=== PATIENT | female | born 1975 | race Caucasian/White ===

== ENCOUNTER 2024-06-19 23:52 | Emergency (ER) | payer SELFPAY ==
[2024-06-19 23:58] VITALS: BP 165/113; PULSE 81; RESP 18; TEMP 36.7; O2SAT 100; BMI 37.2
[2024-06-20] VITALS (9 sets, daily range): BP systolic 89–165; BP diastolic 58–113; PULSE 63–79; O2SAT 92–100
[2024-06-20] MEDS: ketorolac 30 mg/mL INJ IVP (00:28)
[2024-06-20 00:34] LABS: Basophils # 0.1 10^3/uL (0.0-0.1); Basophils % 0.7 %; Eosinophils # 0.5 10^3/uL (0.0-0.8); Eosinophils % 3.1 %; Hematocrit 43.5 % (36-47); Lymphocytes # 4.6 10^3/uL (0.8-4.8); Mean Corpuscular HGB Conc 31.5 g/dL (30-55); Mean Corpuscular Hemoglobin 28.7 pg (27-33); Mean Corpuscular Volume 91.2 fl (85-98); Mean Platelet Volume 9.2 fL (7.4-10.4); Monocytes % 6.6 %; Neutrophils # 9.09 10^3/uL (1.8-7.7); Nucleated Red Blood Cells % 0 %; Platelet Count 448 10^3/cmm (157-399); Red Blood Count 4.77 10^6/uL (3.85-5.65); Red Cell Distribution Width 12.6 % (12.1-15.1); White Blood Count 15.39 10^3/uL (3.29-11.43)
[2024-06-20 00:48] LABS: Alanine Aminotransferase 12 U/L (0-33); Albumin Level 3.9 g/dL (3.5-5.2); Alkaline Phosphatase 92 U/L (35-105); Anion Gap 12.7 (5-19); Aspartate Amino Transferase 15 U/L (0-32); Blood Urea Nitrogen 17 mg/dL (6-20); Carbon Dioxide 29 mmol/L (22-29); Chloride 100 mmol/L (98-107); Creatinine Clr Calc Pharmacy 75.5299; Globulin 2.9 g/dL (1.3-4.6); Glomerular Filtration Rate 59.2 mL/min (90-130); Glucose 124 mg/dL (65-115); Lipase 46 U/L (13-60); Osmolality Calculated 289 mOsm/kg (285-295); Potassium 3.7 mmol/L (3.5-5.1); Sodium 138 mmol/L (136-145); Total Bilirubin 0.2 mg/dL (0.15-1.2); Total Protein 6.8 g/dL (6.6-8.7)
[2024-06-20 00:50] LABS: Bilirubin Urine Negative (Negative); Blood Urine Negative (Negative); Glucose Urine UA Negative (Normal); Ketones Urine Negative (Negative); Leukocyte Esterase Urine Negative (Negative); Nitrate Urine Negative (Negative); Protein Urine Negative (Negative); Specific Gravity, Urine 1.029 (1.005-1.030); Urine Appearance Clear (CLEAR); Urine Color Yellow (Yellow)
[2024-06-20 00:55] LABS: Add Urine Microscopic? YES; Bacteria Urine Trace /hpf; Squamous Epithelial Cell Urine 0-5 /hpf (0-5); WBC Urine 0-5 /hpf (0-5)
--- NOTE | 2024-06-20 01:06 | W.ED.ABDPA2 ---
HPI - Abdominal Pain General: Chief Complaint: Abdominal Pain Stated Complaint: n/v abd pain Time Seen by Provider: 06/20/24 00:20 History of Present Illness: Patient presents to the ER with complaints of epigastric and right upper quadrant abdominal pain. She said began 2 hours ago. Is sharp stabbing in nature. Says she does have a history of gallbladder issues and possible pancreatitis. Patient's squirming around on bed acting like she is tripping out on methamphetamines and cannot sit still. Related Data Date of Last Menstrual Period: 06/12/24 Allergies Allergy/AdvReac Type Severity Reaction Status Date / Time No Known Allergies Allergy Verified 06/20/24 00:05 Review of Systems General: Reports: 10 or more systems reviewed and unremarkable except in HPI and below [facility] Female Reproductive History: Date of last menstrual period: 06/12/24 Physical Exam Const: COMMON NORMALS: no acute distress, average body habitus, patient oriented x3, no limitations, healthy appearing, alert and well nourished HENMT: COMMON NORMALS: normocephalic, hearing grossly normal bilaterally, external ears normal, Normal external nose present and moist oral mucous membranes HEAD & SCALP: normocephalic NOSE: Normal external nose present EXTERNAL EAR: Yes external ears normal Neck/C-Spine: COMMON NORMALS: no JVD Chest: COMMONS NORMALS: normal inspection of the chest and normal palpation of entire chest wall Resp: COMMON NORMALS: normal respiratory effort, No retractions, No use of accessory muscles and clear to auscultation bilaterally AUSCULTATION: clear to auscultation bilaterally Cardio: COMMON NORMALS: no JVD, regular rate, regular rhythm, S1 normal heart sound present, S2 normal heart sound present, No gallops present (Cardio), No clicks present (Cardio), No murmurs present (Cardio) and No rub (Cardio) RATE: regular rate RHYTHM: regular rhythm HEART SOUNDS: S1 normal heart sound present and S2 normal heart sound present GI: COMMON NORMALS: Normal to inspection, nondistended, normoactive bowel sounds present, Soft to palpation, No hepatosplenomegaly present and no masses; negative for non-tender (Tender to palpate epigastric right upper quadrant area) PALPATION: Yes Soft to palpation and Yes No hepatosplenomegaly present Neuro: COMMON NORMALS: patient oriented x3 SENSORIUM/ORIENTATION: Yes alert Course Vital Signs: Vital signs: Vital Signs Temperature 98.0 F 06/19/24 23:58 Pulse Rate 63 06/20/24 04:15 Respiratory Rate 18 06/19/24 23:58 Blood Pressure 107/73 06/20/24 04:15 Pulse Oximetry 97 06/20/24 04:15 Oxygen Delivery Me thod Room Air 06/20/24 02:10 MDM - Abdominal Pain Medical Decision Making Lab work was obtained which showed a white count of 15.39 platelets of 448, otherwise essentially unremarkable except for positive for marijuana, CT scan of the abdomen pelvis showed mild infiltration of the liver along with cholelithiasis. ALT AST and alk phos all normal. These results was discussed with the patient. Patient be discharged home to follow-up with her PCP. Medical Records I reviewed the patient's medical records. Lab Data I reviewed the patient's lab results. 06/20/24 00:21 06/20/24 00:21 Labs/Radiology: Radiology Impressions Abdomen/Pelvis CT 06/20/24 01:30 IMPRESSION: 1. Mild fatty infiltration of the liver. 2. Cholelithiasis. Laboratory Results WBC 15.39 10^3/uL (3.29-11.43) H 06/20/24 00:21 RBC 4.77 10^6/uL (3.85-5.65) 06/20/24 00:21 Hgb 13.70 g/dL (11.27-16.99) 06/20/24 00:21 Hct 43.5 % (36-47) 06/20/24 00:21 MCV 91.2 fl (85-98) 06/20/24 00:21 MCH 28.7 pg (27-33) 06/20/24 00:21 MCHC 31.5 g/dL (30-55) 06/20/24 00:21 RDW 12.6 % (12.1-15.1) 06/20/24 00:21 Plt Count 448 10^3/cmm (157-399) H 06/20/24 00:21 MPV 9.2 fL (7.4-10.4) 06/20/24 00:21 Neut % (Auto) 59.0 % 06/20/24 00:21 Lymph % (Auto) 30.0 % 06/20/24 00:21 [place] % (Auto) 6.6 % 06/20/24 00:21 Eos % (Auto) 3.1 % 06/20/24 00:21 Baso % (Auto) 0.7 % 06/20/24 00:21 Neut # (Auto) 9.09 10^3/uL (1.8-7.7) H 06/20/24 00:21 Lymph # (Auto) 4.6 10^3/uL (0.8-4.8) 06/20/24 00:21 [place] # (Auto) 1.0 10^3/uL (0.2-0.9) H 06/20/24 00:21 Eos # (Auto) 0.5 10^3/uL (0.0-0.8) 06/20/24 00:21 Baso # (Auto) 0.1 10^3/uL (0.0-0.1) 06/20/24 00:21 Nucleated RBC % (auto) 0 % 06/20/24 00: Nucleated RBCs # 0.0 /100WBC 06/20/24 00:21 Sodium 138 mmol/L (136-145) 06/20/24 00:21 Potassium 3.7 mmol/L (3.5-5.1) 06/20/24 00:21 Chloride 100 mmol/L (98-107) 06/20/24 00:21 Carbon Dioxide 29 mmol/L (22-29) 06/20/24 00:21 Anion Gap 12.7 (5-19) 06/20/24 00:21 BUN 17 mg/dL (6-20) 06/20/24 00:21 Creatinine 1.0 mg/dL (0.5-0.9) H 06/20/24 00:21 GFR Calculation 59.2 mL/min (90-130) L 06/20/24 00:21 Glucose 124 mg/dL (65-115) H 06/20/24 00:21 Calculated Osmolality 289 mOsm/kg (285-295) 06/20/24 00:21 Calcium 9.0 mg/dL (8.5-10.5) 06/20/24 00:21 Total Bilirubin 0.2 mg/dL (0.15-1.2) 06/20/24 00:21 AST 15 U/L (0-32) 06/20/24 00:21 ALT 12 U/L (0-33) 06/20/24 00:21 Alkaline Phosphatase 92 U/L (35-105) 06/20/24 00:21 Total Protein 6.8 g/dL (6.6-8.7) 06/20/24 00:21 Albumin 3.9 g/dL (3.5-5.2) 06/20/24 00:21 Globulin 2.9 g/dL (1.3-4.6) 06/20/24 00:21 Lipase 46 U/L (13-60) 06/20/24 00:21 Urine Color Yellow (Yellow) 06/20/24 00:39 Urine Appearance Clear (CLEAR) 06/20/24 00:39 Urine pH 6.0 (5-7) 06/20/24 00:39 Ur Specific [place] 1.029 (1.005-1.030) 06/20/24 00:39 Urine Protein Negative (Negative) 06/20/24 00:39 Urine Glucose (UA) Negative (Normal) 06/20/24 00:39 Urine Ketones Negative (Negative) 06/20/24 00:39 Urine Blood Negative (Negative) 06/20/24 00:39 Urine Nitrate Negative (Negative) 06/20/24 00:39 Urine Bilirubin Negative (Negative) 06/20/24 00:39 Urine Urobilinogen 1.0 mg/dL (Negative) 06/20/24 00:39 Ur Leukocyte Esterase Negative (Negative) 06/20/24 00:39 Urine RBC 3-5 /hpf (0-2) 06/20/24 00:39 Urine WBC 0-5 /hpf (0-5) 06/20/24 00:39 Ur Squamous Epith Cells 0-5 /hpf (0-5) 06/20/24 00:39 Amorphous Sediment Not Reportable 06/20/24 00:39 Urine Bacteria Trace /hpf (NONE) 06/20/24 00:39 Hyaline Casts 0.40 /lpf 06/20/24 00:39 Urine Opiates Screen Negative ng/mL (Negative) 06/20/24 00:39 Ur Barbiturates Screen Negative ng/mL (Negative) 06/20/24 00:39 Ur Phencyclidine Scrn Negative ng/mL (Negative) 06/20/24 00:39 Ur Amphetamines Screen Negative ng/mL (Negative) 06/20/24 00:39 U Benzodiazepines Scrn Negative ng/mL (Negative) 06/20/24 00:39 Urine Cocaine Screen Negative ng/mL (Negative) 06/20/24 00:39 U Marijuana (THC) Screen Positive ng/mL (Negative) H 06/20/24 00:39 All radiology interpretation(s) finalized by discharge Discharge Plan Discharge Patient Disposition: Home Clinical Impression: Abdominal pain Qualifiers: Abdominal location: right upper quadrant Qualified Code(s): R10.11 - Right upper quadrant pain Cholelithiasis Qualifiers: Cholelithiasis location: gallbladder Cholecystitis presence: without cholecystitis Biliary obstruction: without biliary obstruction Qualified Code(s): K80.20 - Calculus of gallbladder without cholecystitis without obstruction Condition: Stable Discharge Orders: Discharge ED (Routine); Ordered 06/20/24 Ordered By: Wade Donohue Patient Instructions: Cholelithiasis, Abdominal Pain (ED) Activity Restrictions/Additional Instructions: Your evaluation ER today showed you have gallstones. Please eat a low-fat diet. Please follow-up with your family practitioner for further evaluation treatment as needed. Coding Level of Care Code ED Care Nurse Rn for Dana Aavlos
[2024-06-20 01:26] LABS: Amphetamines Screen Urine Negative (Negative); Barbiturates Screen Urine Negative (Negative); Benzodiazepines Screen Urine Negative (Negative); Cocaine Screen Urine Negative (Negative); Opiate Screen Urine Negative (Negative); PCP Screen Urine Negative (Negative); THC Screen Urine Positive (Negative)
--- NOTE | 2024-06-20 01:30 | CTR_ITS ---
PROCEDURE INFORMATION: Exam: CT Abdomen And Pelvis With Contrast Exam date and time: 06/20/2024 1:42 AM Age: 48 years old Clinical indication: Abdominal pain; Localized; Right upper quadrant (ruq); Prior surgery; Surgery date: 6+ months; Surgery type: Tubal; Additional info: Abdominal pain, right upper quadrant TECHNIQUE: Imaging protocol: Computed tomography of the abdomen and pelvis with contrast. Radiation optimization: All CT scans at this facility use at least one of these dose optimization techniques: automated exposure control; mA and/or kV adjustment per patient size (includes targeted exams where dose is matched to clinical indication); or iterative reconstruction. Contrast material: OMNI 350; Contrast volume: 100 ml; Contrast route: INTRAVENOUS (IV); COMPARISON: No relevant prior studies available. RADIATION DOSE METRICS: Total DLP (mGy-cm): 866.38 FINDINGS: Lungs: Lung bases are clear as visualized. Liver: There is diffuse fatty infiltration of the liver. The liver is otherwise normal. Gallbladder and biliary ducts: There are gallstones within the gallbladder. No pericholecystic inflammatory change is noted. Pancreas: Normal. No ductal dilation. Spleen: Normal. No splenomegaly. Adrenal glands: Normal. No mass. Kidneys and ureters: Normal. No hydronephrosis. Stomach and bowel: Unremarkable. No obstruction. No mucosal thickening. Appendix: No evidence of appendicitis. Intraperitoneal space: Unremarkable. No free air. No significant fluid collection. Vasculature: Unremarkable. No abdominal aortic aneurysm. Lymph nodes: Unremarkable. No enlarged lymph nodes. Urinary bladder: Unremarkable as visualized. Reproductive: There are tubal occlusion devices in both adnexa. No abnormalities are otherwise noted with regards to the reproductive organs. Bones/joints: Unremarkable. No acute fracture. Soft tissues: There is a small fat filled periumbilical hernia. CT/CT abdomen pelvis w con* [id number] IMPRESSION: 1. Mild fatty infiltration of the liver. 2. Cholelithiasis.
[2024-06-20] MEDS: iohexol 350 mg/mL 500 mL Btl (per mL) IV (01:45)
[2024-06-20] MEDS: sodium chloride 0.9% 1,000 ML 999 ML IV (02:17)
== END 2024-06-20 04:17 | disposition home or self-care (01) ==
PROVIDERS: Emergency Provider Emergency Medicine
DX: K80.20 Calculus of gallbladder without cholecystitis without obstruction (principal)
CPT/HCPCS: 36415; 74177; 80053; 80306; 81001; 83690; 85025; 96374; 99285; J1885; J7030

== ENCOUNTER 2024-12-16 10:40 | Outpatient (CLI) | payer MEDICAID, SELFPAY ==
--- NOTE | 2024-12-16 10:45 | MM_ITS ---
WS: [id number] BILATERAL 3D TOMOSYNTHESIS DIGITAL SCREENING MAMMOGRAPHY WITH CAD CLINICAL INFORMATION: SCREENING HISTORY: Screening mammogram. No current complaints. COMPARISON: Baseline TECHNIQUE: Bilateral CC and MLO views. FINDINGS: Scattered fibroglandular densities bilaterally. No suspicious focal mass, asymmetry, calcifications, or architectural distortion. No evidence of malignancy. MM/MM scr BI tomosynthesis [id number] IMPRESSION: DENSITY: There are scattered areas of fibroglandular density. BI-RADS: 1 - Negative. FOLLOW UP: 1 Year Follow-up Recommend return to annual screening mammography.
== END 2024-12-16 10:41 | disposition home or self-care (01) ==
PROVIDERS: PCP Nurse Practitioner Family; Visit Provider Nurse Practitioner Family
DX: Z12.31 Encounter for screening mammogram for malignant neoplasm of breast (principal); R92.323 Mammographic fibroglandular density, bilateral breasts
CPT/HCPCS: 77063; 77067

== ENCOUNTER → 2025-04-22 14:05 | Outpatient (BNVA) | payer MEDICAID, SELFPAY | PROVIDERS: PCP Nurse Practitioner Family; Referring Provider Nurse Practitioner Family; Visit Provider Specialist | DX: G25.5 Other chorea (principal); G24.9 Dystonia, unspecified | CPT/HCPCS: 36415; 81271; 84439; 86038 ==

== ENCOUNTER → 2025-06-03 05:40 | Day surgery (SDC) | payer MEDICAID, SELFPAY ==
[2025-06-03 06:11] VITALS: BP 104/79; PULSE 89; RESP 18; TEMP 36.3; O2SAT 96; BMI 45.3
--- NOTE | 2025-06-03 06:33 | W.PM.OPSUD ---
Surgery/Procedure H&P Update DATE OF PROCEDURE: June 03, 2025 DATE H&P PERFORMED: 05/19/25 H&P UPDATE INFORMATION: I have reviewed H&P completed within last 30 days, I have examined patient prior to procedure and No changes to prior documentation PLANNED PROCEDURE: Operation Date: 06/03/25 07:00 Proposed Procedures p RIGHT Carpal Tunnel Release(Right) - Elliot Schultz MD
--- NOTE | 2025-06-03 06:34 | ANES.PREANE2 ---
Pre-Anesthetic Assessment Height/Weight: Height 5 ft 3 in Weight 256 lb Temp Pulse Resp BP Pulse Ox O2 Del Method 97.4 F L 89 18 104/79 96 Room Air 06/03/25 06:11 06/03/25 06:11 06/03/25 06:11 06/03/25 06:11 06/03/25 06:11 06/03/25 06:13 Preop Diagnosis: Carpal tunnel syndrome Operation Date: 06/03/25 07:00 Proposed Procedures p RIGHT Carpal Tunnel Release(Right) - Elliot Schultz MD Was Beta William taken within 24 hours: N/A Was Clonidine taken within 24 hours: N/A Last intake: Intake Last Liquid Date 06/02/25 Last Liquid Time 23:00 Last Solid Date 06/02/25 Last Solid Time 16:00 Social Tobacco and No alcohol Exam alert, oriented x 3, clear to auscultation bilaterally and regular rate & rhythm Airway Submandibular: within normal limits Cervical ROM: within normal limits Mallampati: Class III Comments: Comments: Edentulous Anesthetic Plan ASA status: 3 Anesthesia: Choice Other: No prior issues with anesthesia NPO since yesterday evening Patient states that she has GERD but just uses diet to control it Denies any cardiac issues Current smoker METs greater than 4 Medications/Allergies Home Medications ?Medication ?Instructions ?Recorded ?Confirmed ?Last Taken ?Type bupropion HCl 150 mg tablet,12 hr 150 mg PO QDAY 04/22/25 06/02/25 06/02/25 History sustained-release deutetrabenazine 6 mg 6 mg PO DAILY #90 tabs 04/22/25 06/02/25 Unknown Rx tablet,extended release 24 hr gabapentin 100 mg capsule 100 mg PO DAILY 05/01/25 06/02/25 06/02/25 History Allergies Allergy/AdvReac Type Severity Reaction Status Date / Time No Known Allergies Allergy Verified 06/02/25 11:18 [facility] Anesthesia Social History Smoking and tobacco/nicotine status: never used tobacco/nicotine
[2025-06-03] MEDS: ceFAZolin 2,000 mg SDV 2000 MG IVP (06:57)
[2025-06-03] MEDS: BUPivacaine 0.5% INJ 10 mL INJECTION (07:21)
[2025-06-03 07:30] VITALS: BP 131/74; PULSE 86; RESP 16; TEMP 36.6; O2SAT 94
[2025-06-03 07:35] VITALS: BP 127/68; PULSE 81; RESP 18; O2SAT 93
[2025-06-03 07:40] VITALS: BP 127/72; PULSE 84; RESP 18; O2SAT 96
[2025-06-03 07:45] VITALS: BP 114/90; PULSE 83; RESP 18; TEMP 36.2; O2SAT 97
[2025-06-03 08:02] VITALS: BP 139/100; PULSE 81; RESP 18; TEMP 36.2; O2SAT 96
--- NOTE | 2025-06-03 08:30 | ANE.PACU2 ---
Inpatient post-anesthesia follow up: Airway intact: Yes Vital signs: Temperature 97.2 F Pulse Rate 81 Respiratory Rate 18 Blood Pressure 139/100 Pulse Oximetry 96 Oxygen Delivery Me thod Room Air Oxygen Flow Rate Fraction of Inspir ed Oxygen Hydration adequate: Yes Nausea and vomiting: No Pain level: 1 Mental status: Baseline
--- NOTE | 2025-06-03 09:23 | P.OP_ITS ---
Operative Report Date of procedure: June 03, 2025 Surgeon: Elliot Schultz MD Procedure: Preoperative diagnosis: Right carpal tunnel syndrome Postoperative diagnosis: Same Procedure: Right carpal tunnel release Surgeon: Elliot Schultz MD Anesthesia: IV sedation with local anesthetic Indications: Court is a 49-year-old white female who presents the orthopedic clinic for bilateral numbness and tingling in her hands. She had nerve conduction test accompanying her from Dr. Orlando indicating compression of the median nerve at the right carpal tunnel and compression of the ulnar nerve at the cubital tunnel upper extremity. At this time patient was complaining of the right hand being more symptomatic. Clinical exam was consistent with carpal tunnel syndrome of the right hand and the agreeable to proceed with surgical intervention. She is understand that she may have permanent damage to the nerve already and may have continued symptoms once releases occurred. She understands also that it may take up to 17 weeks to know the complete benefit of the release. Procedure: After obtaining consent patient taken by [facility] to the operating room and while still on a [facility] had IV sedation administered. Subsequently pneumatic cuffs placed on proximal right arm proximal arm was prepped and draped usual fashion. After surgical timeout local anesthetic was infiltrated into the palmar surface of the carpal tunnel region just being half percent bupivacaine plain. Once good anesthetic effect was achieved longitudinal incision made just ulnar to the mid palmar crease extending from the distal flexion crease of the wrist distally approximately 1-1/2 to 2 cm. Sharp dissected gone down to subcutaneous tissues and then down to transverse carpal ligament. Transverse carpal ligament found to be very thickened and scarred. This was then divided along the course of the skin incision. Remainder was released in a sharp and blunt fashion using Metzenbaum scissors both proximally and distally. Once good release of been achieved. Wound was closed with 3-0 Prolene horizontal running mattress suture. Wounds are cleaned and dried dressed with Xeroform gauze, sterile gauze dressing, Kerlix wrap, and Hank wrap for compression. Patient awakened transferred cover in stable condition
[2025-06-03 10:32] LABS: OR HCG Qualitative Urine Negative (Negative)
== END | disposition home or self-care (01) ==
PROVIDERS: Student in an Organized Health Care Education/Training Program; PCP Nurse Practitioner Family; Visit Provider Orthopaedic Surgery
PROC: (CPT 64721; principal; 2025-06-03 07:00)
DX: G56.01 Carpal tunnel syndrome, right upper limb (principal); K21.9 Gastro-esophageal reflux disease without esophagitis
CPT/HCPCS: 64721; 81025; J0690; J2250; J2371; J2704; J3010; J3490; J7030